=== PATIENT | female | born 1960 | race American Indian/Alaskan Native ===

== ENCOUNTER 2016-04-11 13:51 | Outpatient (CLI) | payer OTHER ==
--- NOTE | 2016-04-12 11:35 | Mammography Report ---
BILATERAL BASELINE DIGITAL SCREENING MAMMOGRAM WITH CAD: FINDINGS: The breasts have a fibrofatty appearance. There are 2 small areas of parenchymal asymmetry in the right breast. No architectural distortion or suspicious calcifications are seen. IMPRESSION: Right parenchymal asymmetries. BI-RADS CATEGORY: 0 = Needs additional imaging evaluation ACR BI-RADS MAMMOGRAPHIC CODES: 0 = Needs additional imaging evaluation; 1 = Negative; 2 = Benign; 3 = Probably benign; 4 = Suspicious; 5 = Malignant; 6 = Known biopsy-proven malignancy COMMENT: 1. Dense breast tissue, i.e., adenosis, fibrocystic changes, etc., may obscure an underlying neoplasm. 2. Approximately 10% of cancers are not detected with mammography. 3. A negative mammography report should not delay biopsy if a clinically suspicious mass is present. RECOMMENDATION: Spot compression images and ultrasound. COMMENT: Patient follow-up letters are generated in [employer].
== END 2016-04-11 13:52 | disposition home or self-care (01) ==
LOC: MAMMO 13:51
PROVIDERS: ATTEND Family Medicine Adult Medicine
DX: Z12.31 Encounter for screening mammogram for malignant neoplasm of breast (principal); R10.2 Pelvic and perineal pain
CPT/HCPCS: 77067; G0202

== ENCOUNTER 2020-06-12 16:20 | Emergency (ER) | payer OTHER ==
[2020-06-12] MEDS ORDERED: DICYCLOMINE 20 MG/2 ML INJ IM ONE (16:37)
[2020-06-12] MEDS ORDERED: KETOROLAC 30 MG/1 ML INJ IV ONE (16:37)
[2020-06-12] MEDS ORDERED: ONDANSETRON 4 MG/2 ML INJ IV ONE ×2 (16:37→17:35)
[2020-06-12] MEDS ORDERED: FAMOTIDINE 20 MG/2 ML INJ IV ONE (16:37)
[2020-06-12] MEDS ORDERED: SODIUM CHLORIDE 0.9% 1000 ML 1,000 ML IV ONE (16:37)
[2020-06-12 17:18] LABS: Basophils % (Auto) 0.9 % (0.0-1.8); Eosinophils % (Auto) 0.6 % (0.0-4.3); Hematocrit 41.4 % (30.3-42.9); Hemoglobin 13.5 gm/dl (10.1-14.3); Lymphocytes # (Auto) 1.2 K/mm3 (1.2-5.4); Lymphocytes % (Auto) 22.3 % (13.4-35.0); Mean Corpuscular HGB Conc 33 % (30-34); Mean Corpuscular Volume 84 fl (79-97); Monocytes # (Auto) 0.4 K/mm3 (0.0-0.8); Monocytes % (Auto) 6.4 % (0.0-7.3); Platelet Count 294 K/mm3 (140-440); Red Blood Count 4.94 M/mm3 (3.65-5.03); Red Cell Distribution Width 13.7 % (13.2-15.2)
[2020-06-12] MEDS ORDERED: MORPHINE 4 MG/1 ML INJ ONE (17:29)
[2020-06-12] MEDS ORDERED: MORPHINE 4 MG/1 ML INJ IV ONE ×2 (17:30→19:37)
[2020-06-12 17:40] LABS: Alanine Aminotransferase 17 units/L (7-56); Albumin 3.9 g/dL (3.9-5); Blood Urea Nitrogen 7 mg/dL (7-17); Calcium 8.8 mg/dL (8.4-10.2); Hemolysis Index 20
[2020-06-12 17:41] LABS: BUN/Creatinine Ratio 12
[2020-06-12 18:34] VITALS: BP 132/87
[2020-06-12] MEDS ORDERED: METOCLOPRAMIDE 10 MG/2 ML INJ IV ONE (19:11)
--- NOTE | 2020-06-12 19:35 | Emergency Department Report ---
ED Abdominal Pain HPI - General Chief Complaint: Abdominal Pain Stated Complaint: ABD PAIN Time Seen by Provider: 06/12/20 16:30 Source: EMS Mode of arrival: Stretcher Limitations: No Limitations - History of Present Illness Initial Comments: Patient is a 60-year-old F [place] female who presented with epigastric pain. She states she is had some nausea vomiting over the last day. Patient was diagnosed with shingles of the left T9 dermatome 2 days ago.. This does not seem to be associated with the patient's epigastric discomfort. Patient is take n 2 doses of acyclovir. States that the abdominal pain is crampy in nature and comes and goes. States it feels like her stomach is bawling up. There are no vesicles over the area of the patient's pain. Does not radiate to her back. Severity scale (0 -10): 10 - Related Data Previous Rx's Medication Instructions Recorded Last Taken Type Dicyclomine [Bentyl] 20 mg PO QID #10 tablet 06/12/20 Unknown Rx HYDROcodone/APAP 5-325 [[place] 1 each PO Q6HR PRN #10 tablet 06/12/20 Unknown Rx 5/325] Metoclopramide [Reglan] 10 mg PO TID PRN #15 tab 06/12/20 Unknown Rx Pantoprazole [Protonix] 40 mg PO QDAY #30 tablet 06/12/20 Unknown Rx traMADoL [Ultram] 50 mg PO Q6HR PRN #12 tablet 06/12/20 Unknown Rx Allergies Allergy/AdvReac Type Severity Reaction Status Date / Time No Known Allergies Allergy Unverified 12/06/15 14:02 ED Review of Systems ROS: Stated complaint: ABD PAIN Other details as noted in HPI Comment: All other systems reviewed and negative ED Past Medical Hx - Past Medical History Previous Medical History?: Yes Hx Hypertension: Yes Hx Diabetes: Yes Hx Arthritis: Yes Additional medical history: Glaucoma - Surgical History Past Surgical History?: Yes Hx Appendectomy: Yes Additional Surgical History: denies - Social History Smoking Status: Never Smoker Substance Use Type: Alcohol - Medications Home Medications: Home Medications Medication Instructions Recorded Confirmed Last Taken Type Dicyclomine [Bentyl] 20 mg PO QID #10 tablet 06/12/20 Unknown Rx HYDROcodone/APAP 5-325 [[place] 1 each PO Q6HR PRN #10 tablet 06/12/20 Unknown Rx 5/325] Metoclopramide [Reglan] 10 mg PO TID PRN #15 tab 06/12/20 Unknown Rx Pantoprazole [Protonix] 40 mg PO QDAY #30 tablet 06/12/20 Unknown Rx traMADoL [Ultram] 50 mg PO Q6HR PRN #12 tablet 06/12/20 Unknown Rx ED Physical Exam - General Limitations: No Limitations General appearance: alert, in distress (Mild distress secondary to pain which is colicky in nature) - Head Head exam: Present: atraumatic, normocephalic - Eye Eye exam: Present: normal appearance - ENT ENT exam: Present: mucous membranes moist - Neck Neck exam: Present: normal inspection - Respiratory Respiratory exam: Present: normal lung sounds bilaterally. Absent: respiratory distress, wheezes, rales, rhonchi - Cardiovascular Cardiovascular Exam: Present: regular rate, normal rhythm. Absent: systolic murmur, diastolic murmur, rubs, gallop - GI/Abdominal GI/Abdominal exam: Present: soft, tenderness (Epigastric), normal bowel sounds. Absent: distended, guarding, rebound, rigid - Extremities Exam Extremities exam: Present: normal inspection - Back Exam Back exam: Present: normal inspection - Neurological Exam Neurological exam: Present: alert, oriented X3 - Psychiatric Psychiatric exam: Present: normal affect, normal mood - Skin Skin exam: Present: warm, dry, intact, normal color, other (Erythematous vesicles on the left T9 dermatome). Absent: rash ED Course Vital Signs 06/12/20 06/12/20 06/12/20 16:32 16:38 16:40 Temperature 98.3 F 98.3 F Pulse Rate 68 69 Respiratory 18 18 18 Rate Blood Pressure 148/64 Blood Pressure 148/64 [Right] O2 Sat by Pulse 100 100 100 Oximetry 06/12/20 17:35 Temperature Pulse Rate 81 Respiratory 17 Rate Blood Pressure Blood Pressure 132/87 [Right] O2 Sat by Pulse 99 Oximetry ED Medical Decision Making - Lab Data Result diagrams: 06/12/20 17:05 06/12/20 17:05 Lab Results 06/12/20 06/12/20 Range/Units 17:05 17:05 WBC 5.5 (4.5-11.0) K/mm3 RBC 4.94 (3.65-5.03) M/mm3 Hgb 13.5 (10.1-14.3) gm/dl Hct 41.4 (30.3-42.9) % MCV 84 (79-97) fl MCH 27 L (28-32) pg MCHC 33 (30-34) % RDW 13.7 (13.2-15.2) % Plt Count 294 (140-440) K/mm3 Lymph % (Auto) 22.3 (13.4-35.0) % [place] % (Auto) 6.4 (0.0-7.3) % Eos % (Auto) 0.6 (0.0-4.3) % Baso % (Auto) 0.9 (0.0-1.8) % Lymph # (Auto) 1.2 (1.2-5.4) K/mm3 [place] # (Auto) 0.4 (0.0-0.8) K/mm3 Eos # (Auto) 0.0 (0.0-0.4) K/mm3 Baso # (Auto) 0.0 (0.0-0.1) K/mm3 Seg Neutrophils % 69.8 (40.0-70.0) % Seg Neutrophils # 3.8 (1.8-7.7) K/mm3 Sodium 138 (137-145) mmol/L Potassium 4.2 (3.6-5.0) mmol/L Chloride 101.5 (98-107) mmol/L Carbon Dioxide 25 (22-30) mmol/L Anion Gap 16 mmol/L BUN 7 (7-17) mg/dL Creatinine 0.6 (0.6-1.2) mg/dL Estimated GFR > 60 ml/min BUN/Creatinine Ratio 12 % Glucose 171 H (65-100) mg/dL Calcium 8.8 (8.4-10.2) mg/dL Total Bilirubin 0.40 (0.1-1.2) mg/dL AST 14 (5-40) units/L ALT 17 (7-56) units/L Alkaline Phosphatase 90 (35-129) units/L Total Protein 7.0 (6.3-8.2) g/dL Albumin 3.9 (3.9-5) g/dL Albumin/Globulin Ratio 1.3 % Lipase 60 (13-60) units/L - Radiology Data eporting MD: Tessy Montoya Dictation Time: June 12, 2020 18:39 [employer] 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 COMPARISON: None available. FINDINGS: Pancreas: Visualized portion shows no significant abnormality. Liver: The liver is minimally echogenic suggesting some degree of hepatic steatosis. The liver is otherwise of normal size and without discrete mass. Gallbladder: Normal. Bile ducts: Normal. Common Bile Duct measures 4 mm. Free fluid: None. Additional Findings: The right kidney was also evaluated and is without abnormality. IMPRESSION: 1. Mildly echogenic liver consistent with mild hepatic steatosis. 2. No other significant finding within the right upper quadrant. Signer Name: Tessy Montoya MD Signed: 06/12/2020 6:39 PM Workstation Name: [id number] - Medical Decision Making Patient is nausea finally improved after some Reglan and she finally accepted to take something for pain. Patient is likely with gastritis possibly secondary to her medications but could be viral in origin. Ulcers have not been ruled out as well. Patient be given medication for symptomatic relief and should be discharged home follow with GI. Critical care attestation.: If time is entered above; I have spent that time in minutes in the direct care of this critically ill patient, excluding procedure time. ED Disposition Clinical Impression: Gastritis Qualifiers: Gastritis type: unspecified gastritis Chronicity: acute Gastritis bleeding: without bleeding Qualified Code(s): K29.00 - Acute gastritis without bleeding Disposition: -01 TO HOME OR SELFCARE Is pt being admited?: No Does the pt Need Aspirin: No Condition: Stable Instructions: Abdominal Pain (ED), Gastritis, Adult, [id number], [place] Diet Referrals: [facility] [Provider Group] - as needed (Please follow up if symptoms persist ) Time of Disposition: 19:48
--- NOTE | 2020-06-12 19:44 | Ultrasound Report ---
ULTRASOUND ABDOMEN, LIMITED (RIGHT UPPER QUADRANT) INDICATION: epigastric pain. COMPARISON: None available. FINDINGS: Pancreas: Visualized portion shows no significant abnormality. Liver: The liver is minimally echogenic suggesting some degree of hepatic steatosis. The liver is oth erwise of normal size and without discrete mass. Gallbladder: Normal. Bile ducts: Normal. Common Bile Duct measures 4 mm. Free fluid: None. Additional Findings: The right kidney was also evaluated and is without abnormality. IMPRESSION: 1. Mildly echogenic liver consistent with mild hepatic steatosis. 2. No other significant finding within the right upper quadrant. Signer Name: Tessy Montoya MD Signed: 06/12/2020 7:39 PM Workstation Name: [id number]
== END 2020-06-12 20:11 | disposition home or self-care (01) ==
LOC: ED 16:20
DX: K29.70 Gastritis, unspecified, without bleeding (principal); I10 Essential (primary) hypertension; E11.9 Type 2 diabetes mellitus without complications; Z90.49 Acquired absence of other specified parts of digestive tract; Z79.899 Other long term (current) drug therapy
CPT/HCPCS: 36415; 76705; 80053; 83690; 85025; 96361; 96372; 96374; 96375; 96376; 99284; J0500; J1885; J2270; J2405; J2765; J7030